=== PATIENT | female | born 1980 | race Caucasian/White ===

== ENCOUNTER 2019-04-20 08:05 | Emergency (ER) | payer OTHER ==
[~2019-04-20] VITALS: Ht 165.1 cm; Wt 68.0 kg
[2019-04-20] MEDS ORDERED: ATENOLOL 100MG100 MG PO ×2 (08:53)
[2019-04-20] MEDS ORDERED: YAZ 28 TABLET1 EACH PO (08:54)
[2019-04-20 10:26] VITALS: BP 136/72
== END 2019-04-20 10:27 | disposition home or self-care (01) ==
LOC: ER 08:05
DX: M54.6 Pain in thoracic spine (principal); Z88.6 Allergy status to analgesic agent; Z88.1 Allergy status to other antibiotic agents; Z79.899 Other long term (current) drug therapy; Z90.49 Acquired absence of other specified parts of digestive tract; W01.198A Fall on same level from slipping, tripping and stumbling with subsequent striking against other object, initial encounter; Y93.01 Activity, walking, marching and hiking; Y92.89 Other specified places as the place of occurrence of the external cause; Y99.9 Unspecified external cause status